=== PATIENT | male | born 1975 | race African-American/Black ===

== ENCOUNTER 2017-06-06 15:22 | Emergency (ER) | payer SELFPAY ==
[2017-06-06] MEDS ORDERED: ONDANSETRON 4 MG TAB.RAPDIS PO ONE (16:06)
[2017-06-06] MEDS ORDERED: HYDROCODONE/ACETAMINOPHEN 5-325 MG TABLET PO ONE (16:06)
[2017-06-06] MEDS ORDERED: KETOROLAC TROMETHAMINE 60 MG/2 ML SDV IM ONE (17:02)
--- NOTE | 2017-06-06 17:31 | ER Document Report ---
ED Headache - General Chief Complaint: Headache Stated Complaint: VOMITING, HEADACHE Time Seen by Provider: 06/06/17 15:59 Mode of Arrival: Ambulatory Information source: Patient Notes: Patient is a 42-year-old male who presents to the ER today for left upper tooth pain with an associated headache that started last night. Patient admits to some nausea and vomiting last night and some nausea today. Patient admits that he has not eaten anything today and has a "empty stomach." Patient denies any abdominal pain, diarrhea, blurred vision, history of migraines. Patient does not have a dentist he sees. Patient admits "I know I have really bad teeth." TRAVEL OUTSIDE OF THE [place] IN LAST 30 DAYS: No - Related Data Allergies/Adverse Reactions: No Known Allergies Allergy (Unverified 11/16/12 18:42) Past Medical History - General Information source: Patient - Social History Smoking Status: Current Every Day Smoker Family History: Reviewed & Not Pertinent Patient has suicidal ideation: No Patient has homicidal ideation: No Pulmonary Medical History: Reports: Hx Asthma Renal/ Medical History: Denies: Hx Peritoneal Dialysis - Immunizations Hx Diphtheria, Pertussis, Tetanus Vaccination: No Review of Systems - Review of Systems Constitutional: No symptoms reported. denies: Chills, Fever EENT: See HPI Cardiovascular: No symptoms reported Respiratory: No symptoms reported Gastrointestinal: No symptoms reported Genitourinary: No symptoms reported Male Genitourinary: No symptoms reported Musculoskeletal: No symptoms reported Skin: No symptoms reported Hematologic/Lymphatic: No symptoms reported Neurological/Psychological: See HPI Physical Exam - Vital signs Vitals: Temp Pulse BP Pulse Ox 98.8 F 58 L 151/75 H 98 06/06/17 15:32 06/06/17 15:32 06/06/17 15:32 06/06/17 15:32 - Notes Notes: PHYSICAL EXAMINATION: GENERAL: Well-appearing and in no acute distress. HEAD: Atraumatic, normocephalic. EYES: Pupils equal round and reactive to light, extraocular movements intact, sclera anicteric, conjunctiva are normal. ENT: ear canals without erythema or foreign body, TMs pearly mccarthy with good bony landmarks, nares patent, oropharynx clear without exudates. Moist mucous membranes. Very poor dentition throughout, no specific tenderness, no edema noted, opens mouth completely without any issue NECK: Normal range of motion, supple without lymphadenopathy LUNGS: CTAB and equal. No wheezes rales or rhonchi. HEART: Regular rate and rhythm without murmurs ABDOMEN: Soft, no tenderness. No guarding, no rebound EXTREMITIES: Normal range of motion, no pitting edema. No cyanosis. NEUROLOGICAL: Cranial nerves grossly intact. Normal sensory/motor exams. PSYCH: Normal mood, normal affect. SKIN: Warm, Dry, normal turgor, no rashes or lesions noted Course - Re-evaluation Re-evalutation: 06/06/17 17:35 Patient received pain medication here and reports some relief of headache and tooth pain. Patient be placed on amoxicillin and told to follow-up with dentist. He states his sister is giving him information for dentist in town. Patient looks very well, watching TV and talking with family. Patient had no trismus at all. - Vital Signs Vital signs: Temp Pulse Resp BP Pulse Ox 98.8 F 58 L 151/75 H 98 06/06/17 15:32 06/06/17 15:32 06/06/17 15:32 06/06/17 15:32 Discharge - Discharge Clinical Impression: Dental infection Headache Qualifiers: Headache type: unspecified Headache chronicity pattern: acute headache Intractability: not intractable Qualified Code(s): R51 - Headache Condition: Stable Disposition: HOME, SELF-CARE Additional Instructions: Return immediately for any new or worsening symptoms. Follow up with Dentist, call tomorrow to make followup appointment. Prescriptions: Amoxicillin 1 tab PO TID #30 tab
[2017-06-06 17:41] VITALS: BP 135/89
== END 2017-06-06 17:41 | disposition home or self-care (01) ==
LOC: ER 15:22
DX: K04.7 Periapical abscess without sinus (principal); K08.89 Other specified disorders of teeth and supporting structures; R51 Headache; R11.2 Nausea with vomiting, unspecified; J45.909 Unspecified asthma, uncomplicated; F17.200 Nicotine dependence, unspecified, uncomplicated
CPT/HCPCS: 99283; 96372; J1885; S0119

== ENCOUNTER 2017-10-19 19:12 | Emergency (ER) | payer SELFPAY ==
[2017-10-19] MEDS ORDERED: OXYCODONE-ACETAMINOPHEN 5-325 MG TABLET PO ONE (20:39)
--- NOTE | 2017-10-19 20:39 | ER Document Report ---
ED Medical Screen (RME) - General Chief Complaint: Diarrhea Stated Complaint: BACK PAIN Time Seen by Provider: 10/19/17 20:37 Mode of Arrival: Ambulatory Information source: Patient Notes: This is a 42-year-old man with no medical problems who presents to the emergency room with a couple problems: #1. Acute back pain. 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 Patient states that the pain has not gotten any better. He denies any urinary retention. He denies any urinary incontinence or fecal incontinence. He denies any saddle anesthesia or lower extremity weakness. #2. Diarrhea for the past 2 days. Patient states he is also had some abdominal cramping and discomfort. He has had blood in the diarrhea (dark red) . He is noted to have low-grade temperature in the ER. TRAVEL OUTSIDE OF THE [place] IN LAST 30 DAYS: No - Related Data Allergies/Adverse Reactions: No Known Allergies Allergy (Verified 10/19/17 19:14) Past Medical History - Social History Frequency of alcohol use: None Pulmonary Medical History: Reports: Hx Asthma Renal/ Medical History: Denies: Hx Peritoneal Dialysis - Immunizations Hx Diphtheria, Pertussis, Tetanus Vaccination: No Physical Exam - Vital signs Vitals: Temp Pulse Resp BP Pulse Ox 100.2 F 76 16 134/76 H 100 10/19/17 19:35 10/19/17 19:35 10/19/17 19:35 10/19/17 19:35 10/19/17 19:35 Course - Vital Signs Vital signs: Temp Pulse Resp BP Pulse Ox 100.2 F 76 16 134/76 H 100 10/19/17 19:35 10/19/17 19:35 10/19/17 19:35 10/19/17 19:35 10/19/17 19:35
[2017-10-19 21:16] LABS: ABSOLUTE EOSINOPHILS # (AUTO) 0.2 10^3/uL (0.0-0.6); ABSOLUTE LYMPHOCYTES (AUTO) 1.3 10^3/uL (0.5-4.7); ABSOLUTE MONOCYTES (AUTO) 1.3 10^3/uL (0.1-1.4); ABSOLUTE NEUT (AUTO) 5.7 10^3/uL (1.7-8.2); BASOPHILS % (AUTO) 0.5 % (0-2); EOSINOPHILS % (AUTO) 2.3 % (0-6); HEMATOCRIT 41.2 % (37.9-51.0); HEMOGLOBIN 13.8 g/dL (13.5-17.0); LYMPHOCYTES % (AUTO) 15.7 % (13-45); MEAN CORPUSCULAR HEMOGLOBIN 29.6 pg (27.0-33.4); MEAN CORPUSCULAR HGB CONC 33.5 g/dL (32.0-36.0); MEAN CORPUSCULAR VOLUME 89 fl (80-97); MONOCYTES % (AUTO) 14.7 % (3-13); PLATELET COUNT 269 10^3/uL (150-450); RED BLOOD COUNT 4.66 10^6/uL (4.35-5.55); RED CELL DISTRIBUTION WIDTH 12.7 % (11.5-14.0); SEGMENTED NEUTROPHILS % (AUTO) 66.8 % (42-78); TOTAL CELLS COUNTED % (AUTO) 100 %; WHITE BLOOD COUNT 8.5 10^3/uL (4.0-10.5)
[2017-10-19 21:32] LABS: ALANINE AMINOTRANSFERASE 24 U/L (21-72); ALBUMIN 4.2 g/dL (3.5-5.0); ALKALINE PHOSPHATASE 91 U/L (38-126); ANION GAP 13 (5-19); ASPARTATE AMINO TRANSFERASE 22 U/L (17-59); BILIRUBIN,DIRECT 0.2 mg/dL (0.0-0.4); BILIRUBIN,TOTAL 0.3 mg/dL (0.2-1.3); BLOOD UREA NITROGEN 13 mg/dL (7-20); CALCIUM 9.2 mg/dL (8.4-10.2); CARBON DIOXIDE 29 mmol/L (22-30); CHLORIDE 101 mmol/L (98-107); GLUCOSE 103 mg/dL (75-110); SODIUM 142.9 mmol/L (137-145)
[2017-10-20] MEDS ORDERED: LOPERAMIDE HCL 2 MG CAPSULE PO ONE (00:31)
--- NOTE | 2017-10-20 00:31 | ER Document Report ---
ED General - General Chief Complaint: Diarrhea Stated Complaint: BACK PAIN Time Seen by Provider: 10/19/17 20:37 Mode of Arrival: Ambulatory Information source: Patient, Relative, [facility] Records Notes: 42-year-old male with no reported past medical history presents with complaint of low back pain and diarrhea. 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 Pain is located in the lumbar region described as a throbbing aching pain that is worse with lying on his side. Patient states that the pain has not gotten any better. He denies any urinary retention. He denies any urinary incontinence or fecal incontinence. He denies any saddle anesthesia or lower extremity weakness. Patient also complaining of abdominal cramping and diarrhea which started 4 days prior to arrival. He states initially he was having 2-3 loose stools per day but over the last 2 days has been in the bathroom more than 20 times. He states his last few bowel movements had bright red blood. He denies any prior similar symptoms, recent travel, sick contacts. TRAVEL OUTSIDE OF THE [place] IN LAST 30 DAYS: No - HPI Onset: Last week Onset/Duration: Sudden, Persistent Quality of pain: Throbbing Severity: Moderate Associated symptoms: Diarrhea Exacerbated by: Supine Relieved by: Other - Lying on his stomach Similar symptoms previously: No Recently seen / treated by doctor: No - Related Data Allergies/Adverse Reactions: No Known Allergies Allergy (Verified 10/19/17 19:14) Past Medical History - General Information source: Patient, Relative, [facility] Records - Social History Smoking Status: Never Smoker Frequency of alcohol use: None Drug Abuse: None Lives with: Family Family History: Reviewed & Not Pertinent Patient has suicidal ideation: No Patient has homicidal ideation: No Pulmonary Medical History: Reports: Hx Asthma Renal/ Medical History: Denies: Hx Peritoneal Dialysis - Immunizations Hx Diphtheria, Pertussis, Tetanus Vaccination: No Review of Systems - Review of Systems Constitutional: denies: Fever, Weakness EENT: denies: Throat pain, Difficulty swallowing Cardiovascular: denies: Chest pain, Palpitations Respiratory: denies: Short of breath Gastrointestinal: Abdominal pain, Diarrhea, Rectal bleeding. denies: Nausea Genitourinary: denies: Dysuria, Flank pain Musculoskeletal: Back pain Skin: denies: Rash Hematologic/Lymphatic: No symptoms reported Neurological/Psychological: denies: Weakness, Loss of power -: Yes All other systems reviewed and negative Physical Exam - Vital signs Vitals: Temp Pulse Resp BP Pulse Ox 100.2 F 76 16 134/76 H 100 10/19/17 19:35 10/19/17 19:35 10/19/17 19:35 10/19/17 19:35 10/19/17 19:35 Interpretation: Hypertensive - Notes Notes: PHYSICAL EXAMINATION: GENERAL: Well-appearing, well-nourished and in no acute distress. HEAD: Atraumatic, normocephalic. EYES: Pupils equal round and reactive to light, extraocular movements intact, sclera anicteric, conjunctiva are normal. ENT: Nares patent, oropharynx clear without exudates. Moist mucous membranes. NECK: Normal range of motion, supple without lymphadenopathy LUNGS: Breath sounds clear to auscultation bilaterally and equal. No wheezes rales or rhonchi. HEART: Regular rate and rhythm without murmurs ABDOMEN: Soft, nontender, nondistended abdomen. No guarding, no rebound. No masses appreciated. Musculoskeletal: Normal range of motion, no pitting or edema. No cyanosis. NEUROLOGICAL: Cranial nerves grossly intact. Normal speech, normal gait. Normal sensory, motor exams PSYCH: Normal mood, normal affect. SKIN: Warm, Dry, normal turgor, no rashes or lesions noted. Course - Re-evaluation Re-evalutation: Laboratory 10/19/17 10/19/17 21:01 21:01 WBC 8.5 RBC 4.66 Hgb 13.8 Hct 41.2 MCV 89 MCH 29.6 MCHC 33.5 RDW 12.7 Plt Count 269 Seg Neutrophils % 66.8 Lymphocytes % 15.7 Monocytes % 14.7 H Eosinophils % 2.3 Basophils % 0.5 Absolute Neutrophils 5.7 Absolute Lymphocytes 1.3 Absolute Monocytes 1.3 Absolute Eosinophils 0.2 Absolute Basophils 0.0 Sodium 142.9 Potassium 4.0 Chloride 101 Carbon Dioxide 29 Anion Gap 13 BUN 13 Creatinine 1.05 Est GFR ( Amer) > 60 Est GFR (Non-Af Amer) > 60 Glucose 103 Calcium 9.2 Total Bilirubin 0.3 Direct Bilirubin 0.2 Neonat Total Bilirubin Not Reportable Neonat Direct Bilirubin Not Reportable Neonat Indirect Bili Not Reportable AST 22 ALT 24 Alkaline Phosphatase 91 Total Protein 8.0 Albumin 4.2 10/20/17 00:31 10/20/17 05:46 42-year-old male with no reported past medical history presents with complaint of low back pain and diarrhea. 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 Pain is located in the lumbar region described as a throbbing aching pain that is worse with lying on his side. Patient states that the pain has not gotten any better. He denies any urinary retention. He denies any urinary incontinence or fecal incontinence. He denies any saddle anesthesia or lower extremity weakness. Patient also complaining of abdominal cramping and diarrhea which started 4 days prior to arrival. He states initially he was having 2-3 loose stools per day but over the last 2 days has been in the bathroom more than 20 times. He states his last few bowel movements had bright red blood. He denies any prior similar symptoms, recent travel, sick contacts. Patient was seen by myself upon arrival. Vital signs were reviewed. Patient is afebrile, normotensive and not hypoxic. Patient does not appear toxic or dehydrated. They are in no acute distress. Previous medical records and nursing notes reviewed. CBC is without leukocytosis or anemia. CMP within normal limits. Stool cultures pending. Patient had received pain medication prior to my exam and on my exam reports improvement of his back pain. Patient's bright red blood per rectum is likely secondary to copious amounts of diarrhea. Patient was given Imodium during his ED course and will be discharged home with Imodium and Motrin. Patient provided the opportunity to ask questions, and express concerns. Discharge instructions discussed. Patient is agreeable with discharge home. Return indications explained and discussed with the patient who displays understanding. Patient encouraged to return to the emergency department immediately with any concerns. 10/20/17 05:46 - Vital Signs Vital signs: Temp Pulse Resp BP Pulse Ox 97.7 F 68 14 126/60 H 100 10/20/17 01:34 10/20/17 01:34 10/20/17 01:34 10/20/17 01:34 10/20/17 01:34 - Laboratory Result Diagrams: 10/19/17 21:01 10/19/17 21:01 Laboratory results interpreted by me: 10/19/17 21:01 Monocytes % 14.7 H Discharge - Discharge Clinical Impression: Abdominal cramping Low back pain Qualifiers: Chronicity: acute Back pain laterality: midline Sciatica presence: without sciatica Qualified Code(s): M54.5 - Low back pain Diarrhea Qualifiers: Diarrhea type: unspecified type Qualified Code(s): R19.7 - Diarrhea, unspecified Condition: Good Disposition: HOME, SELF-CARE Instructions: Abdominal Pain ([facility]), Diarrhea, Nonspecific ([facility]), Low Back Pain ([facility]) Additional Instructions: Diarrhea Diarrhea means frequent, watery stools. There are many causes. Any problem that keeps the intestinal tract from absorbing water from the stool can lead to diarrhea. A sudden new diarrhea problem is usually caused by a virus, food sensitivity, toxic bacteria, or drugs. In this case, we expect the problem to go away soon. Testing is done only if you seem seriously ill from the diarrhea. If you have chronic diarrhea, or diarrhea that keeps coming back, we need to find out why. Chronic diarrhea can be due to inflammation of the bowels such as Crohn's disease or ulcerative colitis, food sensitivity such as intolerance to lactose or wheat protein, irritable bowel syndrome, and other problems. If your diarrhea is a significant problem but it's not clear why you have it, we' ll refer you to a specialist for further testing. During an episode of diarrhea, drink small amounts (two to six ounces) of clear liquids (soft drinks, sport drinks, herb teas, broth, etc). Take fluids frequently to prevent dehydration. It's usually not a problem to take mild anti- diarrhea medication such as Kaopectate or Pepto-Bismol. As the diarrhea eases, advance to small amounts of bland food (mashed potato, toast) for 24 hours. Call the physician if blood appears in your vomit or stool, if vomiting lasts longer than 24 hours, if the abdominal pain worsens or becomes localized to one area, if you develop high fever, or if you become lightheaded and weak. Low Back Pain Three out of every four people will have an episode of disabling back pain during their lifetime. Most commonly the pain is due to straining of the muscles and ligaments in the low back. Usual treatment includes: (1) Rest on a firm surface. Avoid lying on your stomach. (2) Ice pack the painful area. After a few days, gentle heat may be used intermittently to relax the area, or ice packs can be continued. (3) Medication may be needed -- muscle relaxers and antiinflammatory medicines are commonly used. (4) As the back improves, exercises are prescribed to strengthen the back and abdominal muscles. Your doctor will advise you on the proper care for your back at each stage in your recovery. You may be better in a few days -- or healing may take several weeks. If new symptoms of a "herniated disc" (radiation of pain, numbness, or tingling down the back of the leg or weakness in the leg) occur, you should be re-examined. Further testing may be necessary.Follow up with your physician tomorrow for further care or return to the ED IMMEDIATELY if symptoms worsen or new concerns occur. If you cannot afford to follow up with your primary care physician a list of low cost clinics have been provided at the end of your discharge papers as well. Prescriptions: Cyclobenzaprine HCl [Flexeril 10 mg Tablet] 10 mg PO TIDP PRN #15 tab PRN Reason: Hydrocodone/Acetaminophen [[place] 5-325 mg Tablet] 1 tab PO Q6H #10 tablet Ibuprofen [Motrin 600 Mg Tablet] 600 mg PO TID #15 tablet Loperamide HCl [Anti-Diarrhea] 2 mg PO Q8H PRN #15 tablet PRN Reason: Diarrhea Forms: Elevated Blood Pressure, Return to Work
[2017-10-20 01:37] VITALS: BP 126/60
== END 2017-10-20 01:38 | disposition home or self-care (01) ==
LOC: ER 19:12
DX: M54.5 Low back pain (principal); X50.0XXA Overexertion from strenuous movement or load, initial encounter; Y99.0 Civilian activity done for income or pay; R19.7 Diarrhea, unspecified; K62.5 Hemorrhage of anus and rectum; R10.9 Unspecified abdominal pain; J45.909 Unspecified asthma, uncomplicated
CPT/HCPCS: 36415; 80053; 85025; 87045; 87205; 99284

== ENCOUNTER 2018-10-10 23:17 | Emergency (ER) | payer SELFPAY ==
[2018-10-11] MEDS ORDERED: KETOROLAC TROMETHAMINE 60 MG/2 ML SDV IM ONE (02:14)
[2018-10-11] MEDS ORDERED: DEXAMETHASONE SOD PHOS INJ 10 MG/1 ML VIAL IM ONE (02:14)
[2018-10-11] MEDS ORDERED: LIDOCAINE 5% (700 MG) TRANSDERMAL ADH..PATCH TP ONE (02:17)
--- NOTE | 2018-10-11 02:18 | ER Document Report ---
HPI - HPI Time Seen by Provider: 10/11/18 01:55 Pain Level: 4 Context: Patient is a 43-year-old male with chronic back pain who presents to the emergency department with right-sided flank pain and chest wall pain. He states that he feels that the pain is mainly in his muscles in his chest. 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 Patient states that he has scoliosis. Patient does not take any medications. His last dose of ibuprofen was at 10:00 yesterday morning. Denies any loss of bladder or bowel function, dysuria, history of IV drug abuse, bladder or bowel dysfunction, or any other symptoms. - ROS Notes: REVIEW OF SYSTEMS: CONSTITUTIONAL : Denies recent illness. Denies recent unintentional weight loss. Denies fever, chills, or sweats. EENT: Denies eye, ear, throat, or mouth pain, discharge, or symptoms. Denies nasal or sinus congestion. CARDIOVASCULAR: Denies chest pain. RESPIRATORY: See HPI GASTROINTESTINAL: Denies nausea, vomiting, and diarrhea. Denies abdominal pain. Denies constipation. GENITOURINARY: Denies difficulty urinating, burning, blood in urine, urgency or frequency. MUSCULOSKELETAL: See HPI SKIN: Denies rash, itchiness, or lesions HEMATOLOGIC : Denies easy bruising or bleeding. LYMPHATIC: Denies swollen, painful, enlarged glands. NEUROLOGICAL: Denies no numbness or tingling denies weakness. Denies headache. Denies altered mental status. Denies alteration in speech. PSYCHIATRIC: Denies stress, anxiety, alteration in sleep patterns, or depression. All other systems reviewed and negative. Past Medical History - General Information source: Patient, Relative, [facility] Records - Social History Smoking Status: Never Smoker Family History: Reviewed & Not Pertinent Pulmonary Medical History: Reports: Hx Asthma Renal/ Medical History: Denies: Hx Peritoneal Dialysis - Immunizations Hx Diphtheria, Pertussis, Tetanus Vaccination: No Vertical Provider Document - CONSTITUTIONAL Notes: PHYSICAL EXAMINATION: GENERAL: Appears well, healthy, well-nourished, no acute distress. HEAD: Normocephalic, atraumatic. EYES: PERRL, conjunctiva normal, all extraocular movements intact, sclera nonicteric ENT: Moist mucous membranes. NECK: Supple, no noticeable swelling, redness, rash. Normal range of motion. LUNGS: Equal breath sounds bilaterally and clear to auscultation. No wheezes rales or rhonchi. CARDIOVASCULAR: S1-S2, regular rate, regular rhythm. Radial pulses 2+, normal. While EXTREMITIES: Normal strength and range of motion, no pitting or edema. No cyanosis. NEUROLOGICAL: Moves all extremities upon command. Strength 5/5 in all extremities. PSYCH: Normal mood, normal affect. SKIN: Warm, dry. No rash, lesions, ulcerations noted. Normal skin turgor. BACK: Tenderness noted to the low back. - INFECTION CONTROL TRAVEL OUTSIDE OF THE [place] IN LAST 30 DAYS: No Course - Re-evaluation Re-evalutation: 10/11/18 Differential diagnosis for back pain includes muscle spasm, muscle strain, slipped disc cauda equina syndrome, vertebral fracture, vertebral tumor, epidural abscess, pyelonephritis, or AAA. Based on history and exam, the most likely etiology of the patient's back pain is chronic. Emergent MRI is not indicated at this time because the patient does not have new weakness, or cauda equina syndrome. Patient does not have bladder or bowel dysfunction. Patient does right not have history of IV drug use, therefore, I do not suspect an epidural abscess. Patient does not have recent weight loss or night sweats, and does not have a known history of cancer. The patient's difficulty breathing is caused on inspiration. He states it feels like it is more muscle pain in between his ribs. I have a very low suspicion for pulmonary emboli because his heart rate is normal. Oxygen saturation is 100% on room air. I do not suspect any life-threatening etiology at this time. The patient will be given a dose of Toradol and Decadron here in the emergency department. Follow-up precautions were given. Verbal discharge instructions were given to the patient. They verbalized understanding. They are stable for discharge. - Vital Signs Vital signs: Temp Pulse Resp BP Pulse Ox 98.7 F 66 16 130/79 H 100 10/10/18 23:29 10/10/18 23:29 10/10/18 23:29 10/10/18 23:29 10/10/18 23:29 Discharge - Discharge Clinical Impression: Right flank pain, Chest wall pain Condition: Stable Disposition: HOME, SELF-CARE Additional Instructions: You were seen today in the emergency department for right-sided back pain and chest wall pain. You were given pain medication and a steroid to help with your pain. Please follow-up with 1 of the clinics below in regards to this visit. Take Tylenol 1000 mg and ibuprofen 600 mg every 6 hours for your pain. You can buy [id number] Aspercreme with lidocaine and rub it on the areas that hurt. Referrals: [facility] [Provider Group] - Follow up as needed [facility] [Provider Group] - Follow up as needed
[2018-10-11 02:25] VITALS: BP 123/72
== END 2018-10-11 02:34 | disposition home or self-care (01) ==
LOC: ER 23:17
DX: R10.9 Unspecified abdominal pain (principal); R07.89 Other chest pain; M54.9 Dorsalgia, unspecified; J45.909 Unspecified asthma, uncomplicated; R06.00 Dyspnea, unspecified
CPT/HCPCS: 96374; 99283; 96375; J1885; J1100